=== PATIENT | male | born 1945 | race Caucasian/White ===

== ENCOUNTER 2017-12-05 10:38 | Outpatient (CLI) | payer OTHER ==
[~2017-12-05 10:38] MED LIST: ASA81 MG; ENALAPRIL MALEA20 MG; GLUCOTROL10 MG; METFORMIN HCL500 MG; ZOCOR20 MG
== END 2017-12-05 10:46 | disposition home or self-care (01) ==
LOC: RAD 10:38
DX: I11.9 Hypertensive heart disease without heart failure (principal); R06.02 Shortness of breath

== ENCOUNTER 2018-02-04 10:35 | Emergency (ER) | payer OTHER ==
[~2018-02-04] VITALS: Ht 172.7 cm; Wt 85.3 kg
== END 2018-02-04 17:38 | disposition home or self-care (01) ==
LOC: ER 10:35
DX: J22 Unspecified acute lower respiratory infection (principal); J11.1 Influenza due to unidentified influenza virus with other respiratory manifestations

== ENCOUNTER → 2018-08-28 | Emergency (ER) | payer OTHER ==
[~2018-08-28] VITALS: Ht 167.6 cm; Wt 85.7 kg
== END | disposition home or self-care (01) ==
LOC: ER 09:29
DX: B34.9 Viral infection, unspecified (principal)

== ENCOUNTER 2019-01-01 07:40 | Outpatient (CLI) | payer OTHER | END 2019-01-01 07:53 | disposition home or self-care (01) | LOC: LAB 07:40 | DX: D50.8 Other iron deficiency anemias (principal); E03.8 Other specified hypothyroidism; E78.2 Mixed hyperlipidemia; I11.9 Hypertensive heart disease without heart failure; E56.8 Deficiency of other vitamins; N39.0 Urinary tract infection, site not specified; Z12.11 Encounter for screening for malignant neoplasm of colon; E55.9 Vitamin D deficiency, unspecified; N17.8 Other acute kidney failure; E11.9 Type 2 diabetes mellitus without complications; K92.1 Melena; R80.8 Other proteinuria ==

== ENCOUNTER 2019-01-01 10:04 | Outpatient (CLI) | payer OTHER | END 2019-01-01 10:13 | disposition home or self-care (01) | LOC: LAB 10:04 | DX: D50.8 Other iron deficiency anemias (principal); E03.8 Other specified hypothyroidism; E78.2 Mixed hyperlipidemia; I11.9 Hypertensive heart disease without heart failure; E56.8 Deficiency of other vitamins; N39.0 Urinary tract infection, site not specified; Z12.11 Encounter for screening for malignant neoplasm of colon; R19.5 Other fecal abnormalities; E55.9 Vitamin D deficiency, unspecified; N17.8 Other acute kidney failure ==

== ENCOUNTER 2020-05-28 10:38 | Outpatient (CLI) | payer OTHER | END 2020-05-28 10:46 | disposition home or self-care (01) | LOC: RAD 10:38 | PROVIDERS: ATTEND Internal Medicine Geriatric Medicine | DX: I11.9 Hypertensive heart disease without heart failure (principal); R06.02 Shortness of breath ==

== ENCOUNTER → 2020-12-11 | Emergency (ER) | payer OTHER ==
[~2020-12-11] VITALS: Ht 152.4 cm; Wt 80.7 kg
[~2020-12-11] MED LIST changes: +CIPRO500 MG PO; +PEPCID AC20 MG PO; +PROBIOTIC1 EACH PO
== END | disposition home or self-care (01) ==
LOC: ER 15:15
DX: K52.9 Noninfective gastroenteritis and colitis, unspecified (principal)

== ENCOUNTER 2021-01-13 08:00 | Outpatient (CLI) | payer OTHER | END 2021-01-13 08:30 | disposition home or self-care (01) | LOC: PPH VACUNA 08:00 | PROVIDERS: ATTEND Emergency Medicine Pediatric Emergency Medicine | DX: Z23 Encounter for immunization (principal) ==

== ENCOUNTER → 2022-12-10 | Outpatient (CLI) | payer OTHER | END | disposition home or self-care (01) | LOC: TOM 11:26 | PROVIDERS: ATTEND Psychiatry & Neurology Clinical Neurophysiology | DX: G30.1 Alzheimer's disease with late onset (principal); G31.09 Other frontotemporal neurocognitive disorder ==

== ENCOUNTER 2023-05-12 13:27 | Emergency (ER) | payer OTHER ==
[~2023-05-12] VITALS: Ht 175.3 cm; Wt 72.1 kg
[2023-05-12 14:55] LABS: HEMATOCRIT 37.8 % (39.0-48.0); HEMOGLOBIN 12.8 g/dL (13-16.00); MEAN CELL VOLUME 86.6 fL (80.0-100.00); MEAN CORPUSCULAR HEMOGLOBIN 29.4 pg (27.00-32.0); PLATELET COUNT 221 K/uL (150-450); RED BLOOD COUNT 4.36 M/uL (4.00-6.00); RED CELL DISTRIBUTION WIDTH 14.2 % (11.5-14.5)
[2023-05-12 15:50] LABS: CREATININE SERUM 1.05 mg/dL (0.70-1.30); GFR 68.31; POTASSIUM 3.31 mEq/L (3.5-5.1)
[2023-05-12 15:57] LABS: URINE APPEARANCE Clear; URINE BILIRRUBIN Negative (NEGATIVE); URINE BLOOD Trace; URINE COLOR Yellow; URINE GLUCOSE Negative (NEGATIVE); URINE LEUKOCYTE Negative; URINE NITRATE Negative; URINE UROBILINOGEN 0.2 E.U./dl
[2023-05-12 16:00] LABS: URINE BACTERIA 20.1 uL (0.0-1933); URINE EPITHELIAL CELLS 5.2 uL (0.0-38.8); URINE RBC 2.1 uL (0.0-20.8); URINE WBC 4.9 uL (0.0-23.2)
[2023-05-12 16:06] LABS: URINE PROTEIN 100 (NEGATIVE)
[2023-05-12] MEDS ORDERED: PAXLOVID 300-11 EAC1 PO (18:30)
[2023-05-12] MEDS ORDERED: TUSNEL LIQUID178 ML PO (18:30)
[2023-05-12] MEDS ORDERED: PEPCID AC20 MG PO (18:30)
== END 2023-05-12 18:56 | disposition home or self-care (01) ==
LOC: ER 13:27
PROVIDERS: Emergency Medicine
DX: U07.1 COVID-19 (principal); K52.89 Other specified noninfective gastroenteritis and colitis; E11.9 Type 2 diabetes mellitus without complications; Z79.84 Long term (current) use of oral hypoglycemic drugs
CPT/HCPCS: 36415; 96365; 99283; J3490

== ENCOUNTER 2023-11-28 10:07 | Outpatient (CLI) | payer OTHER ==
[~2023-11-28 10:07] MED LIST changes: +GLIPIZIDE10 MG PO; +GLUMETZA500 MG PO; +MEMANTINE HCL E28 MG PO; +METRONIDAZOLE500 MG PO; +PAXLOVID 300-11 EAC1 PO; +SIMVASTATIN5 MG PO; +TRAZODONE HCL150 MG PO; +TUSNEL LIQUID178 ML PO; +VASOTEC20 M1 PO
== END 2023-11-28 10:08 | disposition home or self-care (01) ==
LOC: NUCLEAR 10:07
PROVIDERS: ATTEND Internal Medicine Geriatric Medicine
DX: I70.203 Unspecified atherosclerosis of native arteries of extremities, bilateral legs (principal); I74.3 Embolism and thrombosis of arteries of the lower extremities

== ENCOUNTER 2024-03-07 08:24 | Outpatient (CLI) | payer OTHER ==
[2024-03-07 08:49] LABS: HEMATOCRIT 33.3 % (39.0-48.0); HEMOGLOBIN 11.4 g/dL (13-16.00); MEAN CELL VOLUME 86.1 fL (80.0-100.00); MEAN CORPUSCULAR HEMOGLOBIN 29.6 pg (27.00-32.0); MEAN CORPUSCULAR HGB CONC 34.4 g/dl (32.0-36.0); PLATELET COUNT 314 K/uL (150-450); RED BLOOD COUNT 3.86 M/uL (4.00-6.00); RED CELL DISTRIBUTION WIDTH 14.5 % (11.5-14.5)
[2024-03-07 09:28] LABS: ALBUMIN 3.8 gm/dL (3.4-5.0); BILIRUBIN TOTAL 0.41 mg/dL (0.3-1.2); CALCIUM 9.3 mg/dL (8.5-10.1); CREATININE SERUM 1.23 mg/dL (0.70-1.30); GFR 56.76; GLOBULINA 3.4 G/DL (2.4-3.5); POTASSIUM 4.7 mEq/L (3.5-5.1); TOTAL PROTEIN 7.2 gm/dL (6.4-8.2)
== END 2024-03-07 08:25 | disposition home or self-care (01) ==
LOC: LAB 08:24
PROVIDERS: ATTEND Internal Medicine Hematology & Oncology
DX: D50.8 Other iron deficiency anemias (principal); I10 Essential (primary) hypertension; R74.02 Elevation of levels of lactic acid dehydrogenase [LDH]; K76.89 Other specified diseases of liver; D72.828 Other elevated white blood cell count; D51.1 Vitamin B12 deficiency anemia due to selective vitamin B12 malabsorption with proteinuria; D51.3 Other dietary vitamin B12 deficiency anemia; E11.9 Type 2 diabetes mellitus without complications; E78.2 Mixed hyperlipidemia

== ENCOUNTER 2024-04-24 10:20 | Emergency (ER) | payer OTHER ==
[~2024-04-24] VITALS: Ht 172.7 cm; Wt 68.0 kg
[2024-04-24] MEDS ORDERED: HYDROCHLOROTH12.5 MG (10:38)
[2024-04-24] MEDS ORDERED: ZOCOR20 MG PO (10:39)
[2024-04-24] MEDS ORDERED: CHILDREN'S ASPI81 MG PO (10:39)
[2024-04-24] MEDS ORDERED: SEROQUEL25 MG PO (10:40)
[2024-04-24] MEDS ORDERED: CILOSTAZOL50 MG PO (10:40)
[2024-04-24] MEDS ORDERED: ACETAMINOPHEN 500 MG GEL..CAP PO ONE ×2 (12:00→12:05)
== END 2024-04-24 13:19 ==
LOC: ER 10:22
DX: S09.8XXA Other specified injuries of head, initial encounter (principal); S59.909A Unspecified injury of unspecified elbow, initial encounter; W19.XXXA Unspecified fall, initial encounter; Y93.89 Activity, other specified; Y92.89 Other specified places as the place of occurrence of the external cause; Y99.8 Other external cause status; E11.9 Type 2 diabetes mellitus without complications; Z79.84 Long term (current) use of oral hypoglycemic drugs

== ENCOUNTER 2024-07-07 12:59 | Inpatient (IN) | payer OTHER ==
[~2024-07-07] VITALS: Ht 177.8 cm; Wt 72.6 kg
[~2024-07-07 12:59] MED LIST changes: +CHILDREN'S ASPI81 MG PO; +CILOSTAZOL50 MG PO; +HYDROCHLOROTH12.5 MG; +SEROQUEL25 MG PO; +ZOCOR20 MG PO
--- NOTE | 2024-07-07 13:30 | NUR ---
PTE ALERTA Y DESOTRIENTADO EN COMPANAI DE HIJO. EL MISMO REFIERE UN EPISODIO DE DIARREAH HOA Y DOPLOR ABDOMINAL. SE MIDEN S/V Y SE UBICQA.
--- NOTE | 2024-07-07 13:47 | NUR ---
SE REALIZA EKG Y SE PRESNETA A PTE A DR. REDDY. SE CONECTA A MONITOR CARDIACO Y SATUROMETRO.
[2024-07-07] MEDS ORDERED: LACTOBACILLUS ACIDOPHILUS 1 CAP CAP PO ONE ×2 (15:45→16:14)
[2024-07-07] MEDS ORDERED: FAMOTIDINE/PF 20 MG/2 ML VIAL IV ONE (15:45)
[2024-07-07] MEDS ORDERED: 0.9 % SODIUM CHLORIDE 500 ML IV ONE ×2 (16:00→20:00)
[2024-07-07] MEDS ORDERED: FAMOTIDINE/PF 20 MG/2 ML VIAL ONE (16:14)
[2024-07-07 16:45] LABS: HEMATOCRIT 34.5 % (39.0-48.0); HEMOGLOBIN 11.7 g/dL (13-16.00); MEAN CELL VOLUME 88.5 fL (80.0-100.00); MEAN CORPUSCULAR HEMOGLOBIN 29.9 pg (27.00-32.0); MEAN CORPUSCULAR HGB CONC 33.8 g/dl (32.0-36.0); PLATELET COUNT 264 K/uL (150-450); RED BLOOD COUNT 3.89 M/uL (4.00-6.00); RED CELL DISTRIBUTION WIDTH 14.1 % (11.5-14.5)
[2024-07-07] MEDS ORDERED: HALOPERIDOL 0.5 MG TABLET PO ONE (16:45)
[2024-07-07] MEDS ORDERED: HALOPERIDOL LACTATE 5 MG/ML AMPUL ONE (16:47)
[2024-07-07] MEDS ORDERED: HALOPERIDOL LACTATE 5 MG/ML AMPUL IM STA (16:57)
[2024-07-07 17:12] LABS: INR 1.03; PARTIAL THROMBOPLASTIN TIME 23.3 SECONDS (22.0-34.0); PROTHROMBIN TIME 11.2 SECONDS (9.0-11.5)
[2024-07-07 17:22] LABS: ALBUMIN 3.5 gm/dL (3.4-5.0); BILIRUBIN TOTAL 0.48 mg/dL (0.3-1.2); CALCIUM 9.2 mg/dL (8.5-10.1); CREATININE SERUM 1.53 mg/dL (0.70-1.30); GFR 44.12; GLOBULINA 3.9 G/DL (2.4-3.5); POTASSIUM 4.28 mEq/L (3.5-5.1); TOTAL PROTEIN 7.4 gm/dL (6.4-8.2)
[2024-07-07] MEDS ORDERED: PIPERACILLIN/TAZOBACTAM SODIUM 2.25 GM VIAL IV ONE (18:15)
[2024-07-07 19:32] LABS: URINE APPEARANCE Clear; URINE BILIRRUBIN Negative (NEGATIVE); URINE BLOOD Negative; URINE COLOR Dark Yellow; URINE GLUCOSE Negative (NEGATIVE); URINE KETONE Negative (NEGATIVE); URINE LEUKOCYTE Negative; URINE NITRATE Negative; URINE PROTEIN Trace (NEGATIVE); URINE UROBILINOGEN 0.2 E.U./dl
[2024-07-07 19:36] LABS: URINE BACTERIA 263.1 uL (0.0-1933); URINE CAST 2.79 uL (0.0-1.40); URINE RBC 5.4 uL (0.0-20.8); URINE WBC 17.7 uL (0.0-23.2)
[2024-07-07] MEDS ORDERED: MEROPENEM 500 MG/VIAL VIAL IV SCH (20:06)
[2024-07-07] MEDS ORDERED: 0.9 % SODIUM CHLORIDE 1,000 ML IV SCH (20:15)
[2024-07-07] MEDS ORDERED: 0.9 % SODIUM CHLORIDE 1,000 ML IV ONE (20:15)
[2024-07-07] MEDS ORDERED: QUETIAPINE FUMARATE 100 MG TABLET PO SCH (20:22)
[2024-07-07] MEDS ORDERED: ACETAMINOPHEN 500 MG GEL..CAP PO PRN (20:30)
[2024-07-07 20:35] LABS: URINE YEAST MODERATE /hpf
[2024-07-07] MEDS ORDERED: DEXTROSE 50 % IN WATER 0.5 G/ML DISP.SYRIN IV PRN (21:30)
[2024-07-07] MEDS ORDERED: ENALAPRILAT DIHYDRATE 1.25 MG/ML VIAL IV PRN (21:30)
[2024-07-07] MEDS ORDERED: INSULIN LISPRO 1,000 UNIT/10 ML UNITS SUBCUTANEO PRN (21:30)
[2024-07-07 22:37] LABS: ALBUMIN 3.2 gm/dL (3.4-5.0); BILIRUBIN TOTAL 0.8 mg/dL (0.3-1.2); BILIRUBIN,CONJUGATED 0.26 mg/dL (0.0-0.2); BILIRUBIN,UNCONJUGATED 0.54 mg/dL (0.0-0.6); TOTAL PROTEIN 6.7 gm/dL (6.4-8.2)
[2024-07-07 22:42] LABS: C-REACTIVE PROTEIN 3.7 MG/DL (0.00-0.29)
[2024-07-07 23:15] VITALS: BP 118/53; O2SAT 96
[2024-07-07 23:43] LABS: ABG PH 7.441 (7.35-7.45); ABG pCO2 28.5 mmHg (35-45); BASE EXCESS -3.6 mmol/l; Tco2 19.9 mmol/l; allen test SATISFACTORY; o2 21 %; puncture site RADIAL LEFT
[2024-07-07 23:44] LABS: SaO2 95.5 %
[2024-07-08] VITALS (21 sets, daily range): BP systolic 84–168; BP diastolic 47–96; O2SAT 8–100
[2024-07-08] MEDS ORDERED: DEXTROSE 50 % IN WATER 0.5 G/ML DISP.SYRIN IV ONE (01:20)
[2024-07-08] MEDS ORDERED: INSULIN LISPRO 1,000 UNIT/10 ML UNITS SUBCUTANEO PRN (07:45)
[2024-07-08] MEDS ORDERED: ENOXAPARIN SODIUM 40 MG/0.4 ML SYRINGE SUBCUTANEO SCH (09:00)
[2024-07-08] MEDS ORDERED: FAMOTIDINE/PF 20 MG in 0.9 % SODIUM CHLORIDE 8 ML IV PUSH SCH (09:00)
[2024-07-08] MEDS ORDERED: FLUCONAZOLE IN NACL,ISO-OSM 50 ML IV SCH (15:00)
[2024-07-08] MEDS ORDERED: FLUCONAZOLE IN NACL,ISO-OSM 2 MG/ML ML IV SCH (17:00)
[2024-07-08] MEDS ORDERED: PANTOPRAZOLE SODIUM 40 MG/VIAL VIAL IV SCH (17:15)
[2024-07-09] VITALS (8 sets, daily range): BP systolic 109–186; BP diastolic 57–92; O2SAT 98–100
[2024-07-09] MEDS ORDERED: PANTOPRAZOLE SODIUM 80 MG in 0.9 % SODIUM CHLORIDE 100 ML IV SCH (06:45)
[2024-07-09 07:06] LABS: ALBUMIN 2.8 gm/dL (3.4-5.0); BILIRUBIN TOTAL 0.47 mg/dL (0.3-1.2); BILIRUBIN,CONJUGATED 0.15 mg/dL (0.0-0.2); BILIRUBIN,UNCONJUGATED 0.32 mg/dL (0.0-0.6); MAGNESIUM 1.6 mg/dL (1.8-2.4); PHOSPHOROUS 2.3 mg/dL (2.5-4.9); TOTAL PROTEIN 5.8 gm/dL (6.4-8.2)
[2024-07-09 07:11] LABS: HEMATOCRIT 30.5 % (39.0-48.0); HEMOGLOBIN 10.7 g/dL (13-16.00); MEAN CELL VOLUME 85.5 fL (80.0-100.00); MEAN CORPUSCULAR HEMOGLOBIN 30.1 pg (27.00-32.0); MEAN CORPUSCULAR HGB CONC 35.2 g/dl (32.0-36.0); PLATELET COUNT 208 K/uL (150-450); RED BLOOD COUNT 3.56 M/uL (4.00-6.00); RED CELL DISTRIBUTION WIDTH 14.4 % (11.5-14.5)
[2024-07-09] MEDS ORDERED: POTASSIUM PHOS,M-BASIC-D-BASIC 3 MM/ML VIAL IV NR (10:30)
[2024-07-09] MEDS ORDERED: MAGNESIUM SULFATE IN WATER 50 ML IV NR (10:30)
[2024-07-10 01:02] VITALS: BP 176/52
[2024-07-10 06:13] LABS: HEMATOCRIT 31.7 % (39.0-48.0); HEMOGLOBIN 10.8 g/dL (13-16.00); MEAN CELL VOLUME 87.7 fL (80.0-100.00); MEAN CORPUSCULAR HEMOGLOBIN 29.8 pg (27.00-32.0); MEAN CORPUSCULAR HGB CONC 33.9 g/dl (32.0-36.0); PLATELET COUNT 216 K/uL (150-450); RED BLOOD COUNT 3.62 M/uL (4.00-6.00)
[2024-07-10 06:38] LABS: ALBUMIN 2.9 gm/dL (3.4-5.0); BILIRUBIN TOTAL 0.5 mg/dL (0.3-1.2); CALCIUM 8.4 mg/dL (8.5-10.1); CREATININE SERUM 0.93 mg/dL (0.70-1.30); GFR 78.38; GLOBULINA 3.2 G/DL (2.4-3.5); MAGNESIUM 2.1 mg/dL (1.8-2.4); PHOSPHOROUS 2.2 mg/dL (2.5-4.9); POTASSIUM 4.06 mEq/L (3.5-5.1); TOTAL PROTEIN 6.1 gm/dL (6.4-8.2)
[2024-07-10 08:54] VITALS: BP 161/74
[2024-07-10] MEDS ORDERED: POTASSIUM PHOS,M-BASIC-D-BASIC 3 MM/ML VIAL IV NR (11:15)
[2024-07-10 17:00] VITALS: BP 170/70
[2024-07-11 00:50] VITALS: BP 159/84
[2024-07-11 09:04] VITALS: BP 125/70
[2024-07-11] MEDS ORDERED: SODIUM CL 0.9% 100 ML IV.SOLN IV ONE (12:45)
[2024-07-11 18:05] VITALS: BP 140/80
[2024-07-12 01:26] VITALS: BP 125/69
[2024-07-12 07:11] LABS: BILIRUBIN TOTAL 0.54 mg/dL (0.3-1.2); CREATININE SERUM 0.86 mg/dL (0.70-1.30); GFR 85.78; GLOBULINA 3.5 G/DL (2.4-3.5); MAGNESIUM 1.7 mg/dL (1.8-2.4); PHOSPHOROUS 3.1 mg/dL (2.5-4.9); POTASSIUM 4.48 mEq/L (3.5-5.1); TOTAL PROTEIN 6.5 gm/dL (6.4-8.2)
[2024-07-12 08:20] VITALS: BP 153/80
[2024-07-12 14:29] LABS: HEMATOCRIT 32.6 % (39.0-48.0); MEAN CELL VOLUME 86.8 fL (80.0-100.00); MEAN CORPUSCULAR HEMOGLOBIN 29.3 pg (27.00-32.0); MEAN CORPUSCULAR HGB CONC 33.8 g/dl (32.0-36.0); PLATELET COUNT 238 K/uL (150-450); RED BLOOD COUNT 3.75 M/uL (4.00-6.00); RED CELL DISTRIBUTION WIDTH 13.9 % (11.5-14.5)
[2024-07-12 17:26] VITALS: BP 169/80
[2024-07-13 01:47] VITALS: BP 115/71; BP 168/80
[2024-07-13 05:02] LABS: PARTIAL THROMBOPLASTIN TIME 24.9 SECONDS (22.0-34.0); PROTHROMBIN TIME 10.9 SECONDS (9.0-11.5)
[2024-07-13 06:34] LABS: COL EPI 78 SECONDS (82-175)
[2024-07-13 08:27] VITALS: BP 129/78
[2024-07-13] MEDS ORDERED: LACTULOSE 20 G/30 ML BLIST.PACK PO NR (09:45)
[2024-07-13] MEDS ORDERED: POLYETHYLENE GLYCOL 3350 17 GM BLIST.PACK PO NR (09:45)
[2024-07-13 15:44] LABS: FECAL LEUKOCYTES NEGATIVE (NEGATIVE)
[2024-07-13 16:12] VITALS: BP 156/89
[2024-07-13] MEDS ORDERED: METOPROLOL SUCCINATE 25 MG TAB.SR.24H PO SCH (17:00)
[2024-07-13] MEDS ORDERED: MEMANTINE HCL 10 MG TABLET PO SCH (17:00)
[2024-07-13] MEDS ORDERED: POLYETHYLENE GLYCOL 3350 17 GM BLIST.PACK PO SCH (21:00)
[2024-07-14 02:55] VITALS: BP 165/81; O2SAT 95
[2024-07-14 09:12] VITALS: BP 113/72; O2SAT 97
[2024-07-14 16:00] VITALS: BP 170/91
== END 2024-07-14 18:24 | disposition home or self-care (01) | DRG 438 ==
LOC: ER 13:00 → ICU-2 21:58 → SEC-K 07-09 16:45 → MEDI 07-09 17:33
PROVIDERS: Emergency Medicine; General Practice; Specialist; ADMIT Internal Medicine Geriatric Medicine; ATTEND Internal Medicine Geriatric Medicine
PROC: BF37ZZZ Magnetic Resonance Imaging (MRI) of Pancreas (ICD-10-PCS; principal; 2024-07-07)
PROC: BW21ZZZ Computerized Tomography (CT Scan) of Abdomen and Pelvis (ICD-10-PCS; 2024-07-07)
PROC: B020ZZZ Computerized Tomography (CT Scan) of Brain (ICD-10-PCS; 2024-07-07)
PROC: 4A12X4Z Monitoring of Cardiac Electrical Activity, External Approach (ICD-10-PCS; 2024-07-09)
PROC: B54MZZZ Ultrasonography of Right Upper Extremity Veins (ICD-10-PCS; 2024-07-13)
DX: K85.10 Biliary acute pancreatitis without necrosis or infection (principal); A41.9 Sepsis, unspecified organism; N17.9 Acute kidney failure, unspecified; G30.9 Alzheimer's disease, unspecified; F02.80 Dementia in other diseases classified elsewhere, unspecified severity, without behavioral disturbance, psychotic disturbance, mood disturbance, and anxiety; I10 Essential (primary) hypertension; E78.5 Hyperlipidemia, unspecified; E11.9 Type 2 diabetes mellitus without complications; Z79.4 Long term (current) use of insulin; K52.9 Noninfective gastroenteritis and colitis, unspecified; D72.829 Elevated white blood cell count, unspecified

== ENCOUNTER 2024-08-30 09:49 | Emergency (ER) | payer OTHER ==
[~2024-08-30] VITALS: Ht 180.3 cm; Wt 76.2 kg
[2024-08-30 10:04] VITALS: BP 96/59; O2SAT 99
[2024-08-30] MEDS ORDERED: REXULTI1 MG PO (10:12)
[2024-08-30] MEDS ORDERED: KAPSPARGO SPRIN25 MG PO (10:12)
[2024-08-30 11:30] LABS: BASO % 0.6 % (0.1-1.2); EOS # 0.25 (0.04-0.54); EOS % 2.6 % (0.7-7.0); HEMATOCRIT 30.3 % (40.1-51.0); HEMOGLOBIN 10.4 g/dL (13.7-17.5); LYMPH # 2.62 (1.18-3.74); LYMPH % 27.2 % (19.3-53.1); MEAN CORPUSCULAR HEMOGLOBIN 29.1 pg (25.6-32.2); MONO # 0.64 (0.24-0.82); MONO % 6.6 % (4.7-12.5); NEUT # 6.05 (1.56-6.13); NEUT % 62.7 % (34.0-71.1); RED BLOOD COUNT 3.57 M/uL (4.63-6.08); RED CELL DISTRIBUTION WIDTH 14.3 % (11.6-14.4)
[2024-08-30 12:31] LABS: URINE APPEARANCE Clear; URINE BILIRRUBIN Negative (NEGATIVE); URINE BLOOD Negative; URINE COLOR Dark Yellow; URINE GLUCOSE Negative (NEGATIVE); URINE KETONE Negative (NEGATIVE); URINE LEUKOCYTE Negative; URINE NITRATE Negative; URINE PROTEIN Trace (NEGATIVE); URINE UROBILINOGEN 0.2 E.U./dl
[2024-08-30 12:37] LABS: URINE BACTERIA 97.9 uL (0.0-1933); URINE EPITHELIAL CELLS 2.3 uL (0.0-38.8); URINE WBC 3.3 uL (0.0-23.2)
[2024-08-30 12:45] LABS: PLATELET COUNT 246 K/uL (163-369)
[2024-08-30 12:45] LABS: URINE CAST 0.58 uL (0.0-1.40)
[2024-08-30 12:52] LABS: ALBUMIN 3.5 gm/dL (3.4-5.0); BILIRUBIN TOTAL 0.37 mg/dL (0.3-1.2); CALCIUM 8.9 mg/dL (8.5-10.1); CREATININE SERUM 1.28 mg/dL (0.70-1.30); GFR 54.21; GLOBULINA 3.3 G/DL (2.4-3.5); POTASSIUM 4.91 mEq/L (3.5-5.1); TOTAL PROTEIN 6.8 gm/dL (6.4-8.2)
== END 2024-08-30 14:31 | disposition home or self-care (01) ==
LOC: ER 09:59
PROVIDERS: Emergency Medicine
DX: G30.9 Alzheimer's disease, unspecified (principal); F02.80 Dementia in other diseases classified elsewhere, unspecified severity, without behavioral disturbance, psychotic disturbance, mood disturbance, and anxiety; R55 Syncope and collapse; I10 Essential (primary) hypertension

== ENCOUNTER 2024-10-20 22:07 | Emergency (ER) | payer OTHER ==
[~2024-10-20] VITALS: Ht 180.3 cm; Wt 77.1 kg
[~2024-10-20 22:07] MED LIST changes: +KAPSPARGO SPRIN25 MG PO; +REXULTI1 MG PO
[2024-10-20] MEDS ORDERED: 0.9 % SODIUM CHLORIDE 1,000 ML IV STA (23:30)
[2024-10-21 01:11] LABS: BASO % 0.5 % (0.1-1.2); EOS # 0.03 (0.04-0.54); EOS % 0.2 % (0.7-7.0); LYMPH # 2.77 (1.18-3.74); LYMPH % 21.1 % (19.3-53.1); MEAN PLATELET VOLUME 10.30 fl (9.4-12.4); MONO # 1.63 (0.24-0.82); NEUT # 8.57 (1.56-6.13); NEUT % 65.4 % (34.0-71.1); RED CELL DISTRIBUTION WIDTH 14.2 % (11.6-14.4)
[2024-10-21 01:18] LABS: MONO % 12.4 % (4.7-12.5)
[2024-10-21 01:41] LABS: ALT/SGPT 38.0 U/L (12-78); AST/SGOT 44.0 U/L (15-37); BILIRUBIN TOTAL 0.41 mg/dL (0.3-1.2); BUN CREA RATIO 20.0 (7.0-25.0); CREATININE SERUM 1.19 mg/dL (0.70-1.30); GFR 58.82; GLOBULINA 4.1 G/DL (2.4-3.5); OSMOLALITY SERUM 275.0 MOSM/KG (275-295)
[2024-10-21 02:44] LABS: GLUCOSE FASTING 38.0 mg/dL (65-100)
[2024-10-21] MEDS ORDERED: DEXTROSE 50 % IN WATER 0.5 G/ML VIAL IV STA (02:50)
[2024-10-21 03:36] LABS: COVID-19 AG POSITIVE (NEGATIVE)
== END 2024-10-21 03:59 | disposition home or self-care (01) ==
LOC: ER 22:07
DX: U07.1 COVID-19 (principal); R53.1 Weakness
CPT/HCPCS: 36415; 96365; 96366; 99282; J3490; J7030

== ENCOUNTER 2025-01-03 17:47 | Emergency (ER) | payer OTHER ==
[~2025-01-03] VITALS: Ht 180.3 cm; Wt 86.2 kg
[2025-01-03 19:09] LABS: BASO % 0.4 % (0.1-1.2); EOS # 0.12 (0.04-0.54); EOS % 0.9 % (0.7-7.0); LYMPH # 1.08 (1.18-3.74); LYMPH % 8.1 % (19.3-53.1); MEAN PLATELET VOLUME 9.90 fl (9.4-12.4); MONO # 1.75 (0.24-0.82); NEUT # 10.29 (1.56-6.13); NEUT % 77.0 % (34.0-71.1); RED CELL DISTRIBUTION WIDTH 13.8 % (11.6-14.4)
[2025-01-03 19:14] LABS: MONO % 13.1 % (4.7-12.5)
[2025-01-03 19:46] LABS: ALT/SGPT 24.0 U/L (12-78); AST/SGOT 14.0 U/L (15-37); BILIRUBIN TOTAL 0.34 mg/dL (0.3-1.2); BUN CREA RATIO 23.0 (7.0-25.0); CREATININE SERUM 1.33 mg/dL (0.70-1.30); GFR 51.73; GLOBULINA 3.5 G/DL (2.4-3.5); GLUCOSE FASTING 99.0 mg/dL (65-100); OSMOLALITY SERUM 286.0 MOSM/KG (275-295)
[2025-01-03 22:01] LABS: URINE APPEARANCE Clear; URINE BILIRRUBIN Negative (NEGATIVE); URINE BLOOD Negative; URINE COLOR Yellow; URINE GLUCOSE Negative (NEGATIVE); URINE KETONE Negative (NEGATIVE); URINE LEUKOCYTE Negative; URINE NITRATE Negative; URINE PROTEIN 30 (NEGATIVE); URINE UROBILINOGEN 0.2 E.U./dl
[2025-01-03 22:02] LABS: URINE BACTERIA 71.9 uL (0.0-1933); URINE CAST 4.25 uL (0.0-1.40); URINE EPITHELIAL CELLS 3.6 uL (0.0-38.8); URINE WBC 6.6 uL (0.0-23.2)
[2025-01-03] MEDS ORDERED: DEXTROSE 50 % IN WATER 0.5 G/ML VIAL IV ONE (22:18)
[2025-01-03 22:21] LABS: URINE CRYSTALS FEW /HPF; URINE RBC 1.3 uL (0.0-20.8)
[2025-01-03 22:22] LABS: TYPE CELLS SQUAMOUS; URINE MUCUS SCANT
[2025-01-03] MEDS ORDERED: 0.9 % SODIUM CHLORIDE 1,000 ML IV STA (22:29)
[2025-01-03] MEDS ORDERED: DEXTROSE 50 % IN WATER 0.5 G/ML VIAL IV STA (22:33)
[2025-01-03 23:35] LABS: COVID-19 AG NEGATIVE (NEGATIVE)
[2025-01-03] MEDS ORDERED: CEFTRIAXONE SODIUM 2,000 MG VIAL IV STA (23:56)
[2025-01-04] MEDS ORDERED: CEFTRIAXONE SODIUM 2,000 MG VIAL ONE (00:18)
[2025-01-04] MEDS ORDERED: LOPERAMIDE HCL 2 MG CAPSULE PO ONE ×2 (05:00→05:01)
[2025-01-04] MEDS ORDERED: LACTOBACILLUS ACIDOPHILUS 1 CAP CAP PO STA (05:13)
[2025-01-04] MEDS ORDERED: LACTOBACILLUS ACIDOPHILUS 1 CAP CAP PO ONE (05:44)
[2025-01-04] MEDS ORDERED: INTESTINEX680 M2 PO (07:22)
[2025-01-04 08:11] VITALS: BP 150/80; O2SAT 98
== END 2025-01-04 08:14 ==
LOC: ER 17:47
PROVIDERS: General Practice
DX: R50.9 Fever, unspecified (principal); R19.7 Diarrhea, unspecified; G72.3 Periodic paralysis; R53.1 Weakness; Z20.822 Contact with and (suspected) exposure to COVID-19
CPT/HCPCS: 36415; 51702; 70450; 71045; 96365; 96366; 99284; J0696; J3490; J7030

== ENCOUNTER 2025-01-05 23:25 | Inpatient (IN) | payer OTHER ==
[~2025-01-05] VITALS: Ht 154.9 cm; Wt 68.0 kg
[~2025-01-05 23:25] MED LIST changes: +INTESTINEX680 M2 PO
[2025-01-05] MEDS ORDERED: METFORMIN HCL1000 M2 PO (23:35)
[2025-01-05] MEDS ORDERED: GLIPIZIDE ER10 MG PO (23:36)
[2025-01-05] MEDS ORDERED: TOPROL XL25 M1 PO (23:37)
[2025-01-05] MEDS ORDERED: [UNRECOGNIZED DRUG - OTHER] (23:38)
[2025-01-05] MEDS ORDERED: BTREX (23:38)
[2025-01-05] MEDS ORDERED: HYDROCODONE-HO473 ML (23:38)
[2025-01-05] MEDS ORDERED: INTEGRA PLUS C1 EACH (23:39)
[2025-01-05] MEDS ORDERED: KEPPRA XR500 MG PO (23:40)
[2025-01-05] MEDS ORDERED: [UNRECOGNIZED DRUG - OTHER] (23:40)
[2025-01-05] MEDS ORDERED: QUETIAPINE FUM400 M1 PO (23:41)
--- NOTE | 2025-01-05 23:43 | NUR ---
PTE LLEGE EN AMBULANCIA POR HYPOTENCION Y HYPOACTIVO Y NO RESPONDE A ESTIMULO . SE LE JERAD S/V Y SE UHICA EN AREA DE CRITICO.
[2025-01-05] MEDS ORDERED: 0.9 % SODIUM CHLORIDE 1,000 ML IV SCH (23:45)
[2025-01-06] VITALS (8 sets, daily range): BP systolic 137–164; BP diastolic 59–82; O2SAT 95–100
[2025-01-06 00:24] LABS: BASO % 0.2 % (0.1-1.2); EOS # 0.00 (0.04-0.54); EOS % 0.0 % (0.7-7.0); LYMPH # 1.11 (1.18-3.74); LYMPH % 8.3 % (19.3-53.1); MEAN PLATELET VOLUME 10.20 fl (9.4-12.4); MONO # 0.76 (0.24-0.82); MONO % 5.7 % (4.7-12.5); NEUT # 11.36 (1.56-6.13); NEUT % 85.4 % (34.0-71.1); RED CELL DISTRIBUTION WIDTH 13.9 % (11.6-14.4)
[2025-01-06 00:25] LABS: ABG PH 7.327 (7.35-7.45); ABG PO2 100.4 mmHg (80-100); BICARBONATE 15.6 mmol/l (23-25); o2 32 %
--- NOTE | 2025-01-06 00:26 | NUR ---
SE ORIENTA A PACIENTE SOBRE ORDEN MEDICA EL MISMO REFIERE ENTENDER Y ACEPTAR.
[2025-01-06] MEDS ORDERED: NOREPINEPHRINE BITARTRATE 4 MG in DEXTROSE 5 % IN WATER 250 ML IV SCH (00:30)
[2025-01-06] MEDS ORDERED: NOREPINEPHRINE BITARTRATE 1 MG/ML AMPUL IV ONE (00:34)
[2025-01-06 00:49] LABS: ALT/SGPT 19.0 U/L (12-78); AST/SGOT 16.0 U/L (15-37); BILIRUBIN TOTAL 0.29 mg/dL (0.3-1.2); BUN CREA RATIO 20.0 (7.0-25.0); CREATININE SERUM 2.4 mg/dL (0.70-1.30); GFR 26.18; GLOBULINA 3.4 G/DL (2.4-3.5); OSMOLALITY SERUM 308.0 MOSM/KG (275-295)
[2025-01-06] MEDS ORDERED: METHYLPREDNISOLONE SOD SUCC 125 MG VIAL IV STA (01:08)
[2025-01-06] MEDS ORDERED: LEVALBUTEROL HCL 0.63 MG/3 ML SOLUTION IH STA (01:09)
[2025-01-06 01:17] LABS: GLUCOSE FASTING 491.0 mg/dL (65-100)
[2025-01-06] MEDS ORDERED: INSULIN REGULAR, HUMAN 1,000 UNIT/10 ML UNITS IV STA ×2 (02:08→02:14)
--- NOTE | 2025-01-06 02:10 | NUR ---
DEXTRO EN 432
[2025-01-06] MEDS ORDERED: POTASSIUM CHLORIDE/D5-0.45NACL 20 MEQ/1,000 ML PIGGYBAG IV STA (02:16)
[2025-01-06] MEDS ORDERED: POTASSIUM CHLORIDE/D5-0.45NACL 20 MEQ/1,000 ML PIGGYBAG IV ONE (02:39)
[2025-01-06] MEDS ORDERED: LEVALBUTEROL HCL 0.63 MG/3 ML SOLUTION IH ONE (02:58)
--- NOTE | 2025-01-06 02:58 | NUR ---
DEXTRO EN 389
--- NOTE | 2025-01-06 03:40 | NUR ---
[facility] [phone]
--- NOTE | 2025-01-06 04:00 | NUR ---
DEXTRO DE 346MG/DL
[2025-01-06 04:14] LABS: URINE APPEARANCE Clear; URINE BILIRRUBIN Negative (NEGATIVE); URINE BLOOD Trace; URINE COLOR Yellow; URINE KETONE Negative (NEGATIVE); URINE LEUKOCYTE Negative; URINE NITRATE Negative; URINE PROTEIN 30 (NEGATIVE); URINE UROBILINOGEN 0.2 E.U./dl
[2025-01-06 04:18] LABS: URINE BACTERIA 115.1 uL (0.0-1933); URINE CAST 4.10 uL (0.0-1.40); URINE EPITHELIAL CELLS 64.1 uL (0.0-38.8); URINE WBC 23.0 uL (0.0-23.2)
[2025-01-06 04:24] LABS: TYPE CELLS SQUAMOUS; URINE GLUCOSE 250 MG/DL (NEGATIVE); URINE RBC 1.1 uL (0.0-20.8)
--- NOTE | 2025-01-06 05:39 | NUR ---
DEXTRO EN 252 MG/DL
[2025-01-06] MEDS ORDERED: 0.9 % SODIUM CHLORIDE 1,000 ML IV ONE (07:15)
[2025-01-06] MEDS ORDERED: ONDANSETRON HCL 4 MG in 0.9 % SODIUM CHLORIDE 50 ML IV PRN (07:15)
[2025-01-06] MEDS ORDERED: INSULIN REGULAR, HUMAN 100 UNITS in 0.9 % SODIUM CHLORIDE 100 ML IV SCH (07:15)
[2025-01-06] MEDS ORDERED: 0.9 % SODIUM CHLORIDE 1,000 ML IV SCH (07:15)
[2025-01-06] MEDS ORDERED: PIPERACILLIN/TAZOBACTAM SODIUM 2.25 GM in DEXTROSE 5 % IN WATER 50 ML IV SCH (08:00)
--- NOTE | 2025-01-06 08:01 | NUR ---
SE RECIBE DEL TURNO ANTERIOR ALERTA Y CON PERIODOS DE DESORIENTACION EN LA UNIDAD DE CRITICO WILBERTO DE EMERGENCIA UBICADO EN CAMA #2 CONECTADO A MONITOR CARDIACO Y OXIMETRIA CONTIUA CON BARANDAS ELEVADAS EN POSICION SEMI VALENTIN. PTE CANALIZADO X3 CON ANGIOS #20 Y #18 CON DRIP DE LEVOPHED BAJANDO A 5MLS/HR, KCL BAJANDO A 150MLS/HR Y DRIP DE INSULINA REGULAR BAJANDO A 3MLS/HR. ABDOMEN DEPRESIBLE AL TACTO. EXTREMIDADES INFERIORES ERNESTO DE EDEMA. PTE SE ENCUENTRA CON SONDA URINARIA BAJANDO A GRAVEDAD COLOR AMARILLO MAGI
[2025-01-06] MEDS ORDERED: FAMOTIDINE/PF 20 MG in 0.9 % SODIUM CHLORIDE 8 ML IV PUSH SCH (09:00)
[2025-01-06 10:13] LABS: ABG PH 7.380 (7.35-7.45); ABG PO2 93.0 mmHg (80-100); BICARBONATE 17.0 mmol/l (23-25)
[2025-01-06 10:14] LABS: o2 21 %
[2025-01-06 10:36] LABS: BUN CREA RATIO 26.0 (7.0-25.0); CREATININE SERUM 1.52 mg/dL (0.70-1.30); GFR 44.35
[2025-01-06 10:58] LABS: OSMOLALITY SERUM 293.0 MOSM/KG (275-295)
[2025-01-06 11:05] LABS: GLUCOSE FASTING 37.0 mg/dL (65-100)
[2025-01-06] MEDS ORDERED: DEXTROSE 5 %-0.45 % SOD CHLORD 1,000 ML IV SCH (12:45)
[2025-01-06] MEDS ORDERED: INSULIN LISPRO 1,000 UNIT/10 ML UNITS SUBCUTANEO PRN ×2 (13:00→14:30)
[2025-01-06] MEDS ORDERED: DEXTROSE 50 % IN WATER 0.5 G/ML DISP.SYRIN IV PRN (13:00)
[2025-01-06] MEDS ORDERED: ENALAPRILAT DIHYDRATE 1.25 MG/ML VIAL IV PRN (13:00)
[2025-01-07 04:00] VITALS: BP 150/65; O2SAT 98
[2025-01-07 07:08] VITALS: BP 129/67; O2SAT 100
[2025-01-07] MEDS ORDERED: ENOXAPARIN SODIUM 30 MG/0.3 ML SYRINGE SUBCUTANEO SCH (09:00)
[2025-01-07] MEDS ORDERED: MAGNESIUM SULFATE IN WATER 50 ML IV NR (10:30)
[2025-01-07 12:00] VITALS: BP 136/95; O2SAT 100
[2025-01-07] MEDS ORDERED: IPRATROPIUM/ALBUTEROL SULFATE 3 ML AMPUL.NEB IH SCH (12:00)
[2025-01-07 15:05] VITALS: BP 146/67; O2SAT 100
[2025-01-07 20:40] VITALS: BP 168/76; O2SAT 97
[2025-01-08] VITALS (17 sets, daily range): BP systolic 105–140; BP diastolic 46–84; O2SAT 72–100
[2025-01-08] MEDS ORDERED: DILTIAZEM HCL 125 MG in 0.9 % SODIUM CHLORIDE 100 ML IV SCH (04:45)
[2025-01-08] MEDS ORDERED: DILTIAZEM HCL 30 MG TABLET PO SCH (09:00)
[2025-01-08 12:19] LABS: BUN CREA RATIO 11.0 (7.0-25.0); CREATININE SERUM 0.97 mg/dL (0.70-1.30); GFR 74.47; OSMOLALITY SERUM 285.0 MOSM/KG (275-295)
[2025-01-08 12:20] LABS: GLUCOSE FASTING 240.0 mg/dL (65-100)
[2025-01-09] VITALS (8 sets, daily range): BP systolic 160–172; BP diastolic 70–82; O2SAT 93–99
[2025-01-09] MEDS ORDERED: SODIUM CHLORIDE 0.45 % 1,000 ML IV SCH (06:30)
[2025-01-09] MEDS ORDERED: LOSARTAN POTASSIUM 25 MG TABLET PO SCH (11:02)
[2025-01-09] MEDS ORDERED: SIMETHICONE 125 MG CAPSULE PO SCH (11:03)
[2025-01-09 13:20] LABS: BUN CREA RATIO 12.0 (7.0-25.0); CREATININE SERUM 0.75 mg/dL (0.70-1.30); GFR 100.2; GLUCOSE FASTING 178.0 mg/dL (65-100); OSMOLALITY SERUM 279.0 MOSM/KG (275-295); TSH 1.21 uIU/mL (0.358-3.74)
[2025-01-09] MEDS ORDERED: DILTIAZEM HCL 30 MG TABLET PO SCH (17:00)
[2025-01-10] VITALS (9 sets, daily range): BP systolic 119–135; BP diastolic 58–86; O2SAT 94–98
[2025-01-10 14:21] LABS: BASO % 0.4 % (0.1-1.2); EOS # 0.48 (0.04-0.54); EOS % 6.9 % (0.7-7.0); LYMPH # 2.33 (1.18-3.74); LYMPH % 33.6 % (19.3-53.1); MEAN PLATELET VOLUME 9.90 fl (9.4-12.4); MONO # 0.59 (0.24-0.82); MONO % 8.5 % (4.7-12.5); NEUT # 3.49 (1.56-6.13); NEUT % 50.5 % (34.0-71.1); RED CELL DISTRIBUTION WIDTH 12.6 % (11.6-14.4)
[2025-01-11] VITALS (7 sets, daily range): BP systolic 160–170; BP diastolic 46–73; O2SAT 90–97
== END 2025-01-11 17:17 | disposition home or self-care (01) | DRG 640 ==
LOC: ICU → ER 23:25 → ICU 01-06 12:48 → ICU-2 01-06 12:48 → ICU 01-06 22:36 → MEDJ 01-08 18:21
PROVIDERS: General Practice; Internal Medicine Endocrinology, Diabetes & Metabolism; Physician Assistant Medical; ADMIT Internal Medicine; ATTEND Internal Medicine
PROC: BW24ZZZ Computerized Tomography (CT Scan) of Chest and Abdomen (ICD-10-PCS; principal; 2025-01-06)
PROC: BW21ZZZ Computerized Tomography (CT Scan) of Abdomen and Pelvis (ICD-10-PCS; 2025-01-06)
PROC: 4A12X4Z Monitoring of Cardiac Electrical Activity, External Approach (ICD-10-PCS; 2025-01-08)
DX: E16.2 Hypoglycemia, unspecified (principal); J69.0 Pneumonitis due to inhalation of food and vomit; R65.21 Severe sepsis with septic shock; K56.7 Ileus, unspecified; J90 Pleural effusion, not elsewhere classified; E87.20 Acidosis, unspecified; E11.9 Type 2 diabetes mellitus without complications; Z79.4 Long term (current) use of insulin; N19 Unspecified kidney failure; D64.9 Anemia, unspecified; G30.9 Alzheimer's disease, unspecified; F02.80 Dementia in other diseases classified elsewhere, unspecified severity, without behavioral disturbance, psychotic disturbance, mood disturbance, and anxiety; I48.91 Unspecified atrial fibrillation